=== PATIENT | female | born 1985 | race Caucasian/White ===

== ENCOUNTER 2018-05-29 00:58 | Inpatient (IN) ==
[2018-05-29] MEDS ORDERED: Aluminum/Magnesium/Simethacone Susp 30 ML UDC PO PRN (04:00)
[2018-05-29] MEDS: Acetaminophen 325 MG Tablet PO PRN ×3 (10:52→21:23)
[2018-05-29] MEDS ORDERED: Loperamide 2 MG Capsule PO PRN (12:24)
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
[2018-05-29] MEDS: buPROPion 150 MG XL 24 HR Tablet PO SCH (19:30)
[2018-05-30] MEDS: Acetaminophen 325 MG Tablet PO PRN ×4 (02:38→18:07)
[2018-05-30] MEDS: buPROPion 150 MG XL 24 HR Tablet PO SCH (08:42)
[2018-05-30 11:51] LABS: Anion Gap 7 meq/L (5-15); Blood Urea Nitrogen 10 mg/dL (7-18); Calcium 8.8 mg/dL (8.5-10.1); Carbon Dioxide 25.4 meq/L (21.0-32.0); Chloride 109 meq/L (98-107); Glomerular Filtration Rate Greater Than 89 mL/min (>89); Glucose,Random 156 mg/dL (74-106); Sodium 141 meq/L (136-145)
[2018-05-30 11:52] LABS: Cholesterol 162 mg/dL (120-200)
[2018-05-30 11:54] LABS: Chol/HDL Ratio 6.63 Ratio; HDL Cholesterol 24.4 mg/dL (40.0-60.0); LDL Cholesterol,Calculated 94 mg/dL (0-99); Triglycerides 219 mg/dL (42-150)
--- NOTE | 2018-05-30 12:59 | P.PNPSY ---
Subjective Chief Complaint: suicide attempt Remarks: Patient seen for follow-up, chart reviewed, patient discussed with nursing staff ; we reviewed the patient's mood, thoughts, and behaviors from overnight and this morning. Nurse reports that the patient had approximately 6 hours of sleep overnight and has had no behavioral outbursts. She continues to complain of opiate withdrawal symptoms and is using the as needed medications that are available to her. Patient was seen sitting quietly in the corner of the day room. She denies active thoughts of suicide or homicidal ideations. She reports sincere motivation for recovery beginning with detox. She reports good response to Wellbutrin in the past and is happy to have it restarted. She recognizes that the Klonopin will not be restarted due to the risks outweighing the benefits and an addict. Patient is willing to try Atarax as needed for anxiety. Patient complains of severe left leg pain and seeks further medical consultation. Mental Status Examination Appearance: Appropriate Consciousness: Alert Orientation: x4 Motor Activity: Normal gait Speech: Unremarkable Language: Adequate Fund of Knowledge: Adequate Attention and Concentration: Adequate Memory: Unremarkable Mood: Sad, Anxious Affect: Blunt Thought Process & Associations: Intact Thought Content: Appropriate Hallucination Type: None Delusion Type: None Suicidal Ideation: No (Passive suicidal thoughts) Suicidal Plan: No Suicidal Intention: No Homicidal Ideation: No Homicidal Plan: No Homicidal Intention: No Insight: Fair Judgment: Impulsive Assessment and Plan - Assessment (1) Depression, major, severe recurrence Code(s): F33.2 - Major depressive disorder, recurrent severe without psychotic features Status: Acute (2) Uncomplicated opioid dependence Code(s): F11.20 - Opioid dependence, uncomplicated Status: Acute - Plan Plan: 05/29/2018 Initial assessment and plan: Clonidine 0.1 mg for anxiety and opiate withdrawal, Zofran as needed for nausea, loperamide for diarrhea. Patient gives consent for Wellbutrin XL 150 mg daily. Medical consult placed for her left leg. Patient gives consent to sign voluntary 05/30/2018: Fair response to treatment plan; the patient is no longer having active thoughts of suicide and is expressing sincere motivation for recovery. Her opiate withdrawal symptoms are adequately controlled. The patient's complaints of left leg pain seemed to be in excess to what would be expected from opiate withdrawal therefore hospitalist consult will be sought. Continue current inpatient psychiatric treatment plan and observation. Hospitalist consulted for assessment of left leg pain and history of infections from IV drug use. Discharge planning: Patient would like help with referrals to recovery programs and will need psychiatric follow-up as well. Justification for Continued Inpatient Stay: Patient remains an elevated risk for self-harm and will require further inpatient stabilization and preparation of a safe discharge plan. Moving patient to a less restrictive environment at this time may result in decompensation.
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
[2018-05-30 16:06] LABS: Baso # (Auto) 0.1 th/mm3 (0.0-0.2); Baso % (Auto) 0.8 % (0.0-2.0); Eos # (Auto) 0.2 th/mm3 (0.0-0.4); Eos % (Auto) 1.8 % (0.0-4.0); Hematocrit 36.5 % (35.0-46.0); Hemoglobin 13.1 gm/dL (11.6-15.3); Lymph # (Auto) 3.4 th/mm3 (1.0-4.8); Lymph % (Auto) 30.5 % (9.0-44.0); Mean Corpuscular Hemoglobin 32.7 pg (27.0-34.0); Mean Corpuscular Volume 90.9 fL (80.0-100.0); Mean Platelet Volume 9.5 fL (7.0-11.0); Mono # (Auto) 0.6 th/mm3 (0.0-0.9); Mono % (Auto) 5.4 % (0.0-8.0); Neut # (Auto) 6.8 th/mm3 (1.8-7.7); Neut % (Auto) 61.5 % (16.0-70.0); Platelet Count 197 th/mm3 (150-450); Red Blood Count 4.01 mil/mm3 (4.00-5.30)
--- NOTE | 2018-05-30 16:10 | US ---
EXAM DATE: 05/30/2018 4:00 PM EST AGE/SEX: 33 years / Female INDICATIONS: Left leg pain. CLINICAL DATA: This is the patient's subsequent encounter. Patient reports that signs and symptoms h ave been present for 2 weeks and indicates a pain score of 3/10. MEDICAL/SURGICAL HISTORY: . Endometriosis. Cholecystectomy. Ankle surgery. . Dilation and cure ttage. [place] [facility] [place]/15/2018. . TECHNIQUE: Venous ultrasound of both lower extremities was performed from the inguinal ligament to t he proximal calf. Real-time, color Doppler and spectral tracing, compression and augmentation techni ques were used. FINDINGS: Normal compression of the deep venous system from the inguinal region to the proximal calf . No echogenic clot is seen. Normal response of the venous system to augmentation and respiration. CONCLUSION: The study is negative for lower extremity deep venous thrombosis. Electronically signed by: Curt Bedoya MD Board Certified Radiologist 05/30/2018 4:09 PM EST
[2018-05-30 16:51] LABS: Platelet Estimate Normal (Normal)
[2018-05-30 17:32] LABS: Hemoglobin A1c 6.1 % (4.3-6.0)
--- NOTE | 2018-05-30 20:29 | XR ---
EXAM DATE: 05/30/2018 8:22 PM EST AGE/SEX: 33 years / Female INDICATIONS: Left lower leg pain. CLINICAL DATA: This is the patient's initial encounter. Patient reports that signs and symptoms have been present for 1 day and indicates a pain score of 5/10. MEDICAL/SURGICAL HISTORY: None. None. COMPARISON: No prior exams available for comparison. FINDINGS: Bony structures are intact and in normal alignment. Osseous density is normal. Soft tissues are unre markable. No radiopaque foreign bodies seen. CONCLUSION: No acute fracture. Electronically signed by: Juan Pablo Armas MD Board Certified Radiologist 05/30/2018 8:28 PM EST
[2018-05-31] MEDS: Acetaminophen 325 MG Tablet PO PRN ×5 (00:32→21:20)
[2018-05-31] MEDS: buPROPion 150 MG XL 24 HR Tablet PO SCH (08:35)
--- NOTE | 2018-05-31 10:03 | P.TTN ---
- Patient Problems Problems: 1. Discharge planning 2. Medication compliance 3. Knowledge deficit 4. Lack of coping skills - Progress Toward Goals Provider Present: Other (Dr. Galdamezpatient is depressed and remains for further stabilization.) Psychiatric Counselors Present: Brett Oviedo Jr., [facility] (Counselor is working with the patient to have her placed at a sober living environment in the [facility]. Patient given a complete list of women's facilities in the [facility].) Group Spec/RT/OT/WALTERS Present: ROMEO Barbosa (Patient attends select groups.) - Documentation Teaching Recipient: Patient
--- NOTE | 2018-05-31 11:02 | P.PN ---
Subjective Interval history: Follow-up visit for left calf pain. Patient is seen and examined in her room with nurse present. She continues to complain of left calf pain and states that it feels like something tightens up behind her calf from time to time. Denies any fevers, chills, vomiting, SOB, cough or chest pain. She continues to have some nausea, but no vomiting today and not requiring Zofran for nausea. Physical Exam Vital signs: Vital Signs 05/30/18 15:22 05/30/18 22:00 05/31/18 06:10 Temperature 98.8 F 98 F 97.3 F L Pulse Rate 59 L 50 L 65 Respiratory Rate 18 16 Blood Pressure 123/76 116/68 105/66 Pulse Oximetry 95 97 95 Narrative: GENERAL: Well-developed obese female in no acute distress SKIN: Warm and dry. Bilateral lower extremity discoloration/hyperpigmentation with no open wounds. Right forehead abrasion, healing. HEAD: Atraumatic. Normocephalic. EYES: Pupils equal and round. No injection. Right conjunctival hemorrhage. ENT: No nasal bleeding or discharge. Mucous membranes pink and moist. NECK: Trachea midline. CARDIOVASCULAR: Regular rate and rhythm. RESPIRATORY: No accessory muscle use. Clear to auscultation. Breath sounds equal bilaterally. GASTROINTESTINAL: Abdomen soft, non-tender, nondistended. MUSCULOSKELETAL: Extremities without clubbing, cyanosis, or edema. No obvious deformities. Left calf larger than right with mild calf tenderness. NEUROLOGICAL: Awake, alert, oriented x3. No obvious cranial nerve deficits. Motor grossly within normal limits. Five out of 5 muscle strength in the arms and legs. Normal speech. Results - Labs CBC & Chem 7: 05/30/18 11:07 05/31/18 11:58 Laboratory Results - last 24 hr 05/30/18 05/30/18 05/30/18 11:07 11:07 11:07 WBC 11.0 RBC 4.01 Hgb 13.1 Hct 36.5 MCV 90.9 MCH 32.7 MCHC 36.0 RDW 13.0 Plt Count 197 MPV 9.5 Prelim Diff (Auto) Slide review pending Neut % (Auto) 61.5 Lymph % (Auto) 30.5 Kimble % (Auto) 5.4 Eos % (Auto) 1.8 Baso % (Auto) 0.8 Neut # (Auto) 6.8 Lymph # (Auto) 3.4 Kimble # (Auto) 0.6 Eos # (Auto) 0.2 Baso # (Auto) 0.1 WBC Differential . Diff Scan Auto diff confirmed Differential Comment . Platelet Estimate Normal Platelet Morphology Enlarged H Sodium 141 Potassium 4.0 Chloride 109 H Carbon Dioxide 25.4 Anion Gap 7 BUN 10 Creatinine 0.70 Estimated GFR Greater than 89 Random Glucose 156 H Hemoglobin A1c 6.1 H Calcium 8.8 Triglycerides 219 H Cholesterol 162 LDL Cholesterol, Calc 94 HDL Cholesterol 24.4 L Cholesterol/HDL Ratio 6.63 - Imaging Impressions Tibia/Fibula X-Ray 05/30/18 00:00 CONCLUSION: No acute fracture. Venous Doppler Study 05/30/18 00:00 CONCLUSION: The study is negative for lower extremity deep venous thrombosis. Assessment and Plan - Plan 33-year-old female with past medical history significant for asthma, endometriosis, tobacco and opiate abuse who presents to [facility] as a transfer from [facility] after heroine OD on 05/28. According to records patient received chest compressions and Narcan via IO access. Labs reviewed, WBC 15.4 , UA with no culture indicated, chest x-ray negative. [facility] consulted due to left foot numbness with recent antibiotic treatment. Heroine OD Suicide attempt Depression - Treatment plan plan per psychiatry - Patient verbalizes she would like to enter sobriety program after discharge Left calf pain Left heel paresthesia -Repeat US of left LE negative for DVT - Tib/fib x-ray negative, no fracture and soft tissue with no abnormalities or foreign bodies seen. - CBC with no leukocytosis, afebrile - Suspect could be muscle spasms, BMP and mag level stable - Trial of Flexeril and PRN Tylenol Abuse - to provide patient with list of resources DVT prophylaxis-ambulation Discussed Condition With: Patient and RN
[2018-05-31 13:07] LABS: Anion Gap 6 meq/L (5-15); Blood Urea Nitrogen 11 mg/dL (7-18); Calcium 9.2 mg/dL (8.5-10.1); Carbon Dioxide 26.4 meq/L (21.0-32.0); Chloride 108 meq/L (98-107); Glomerular Filtration Rate Greater Than 89 mL/min (>89); Glucose,Random 162 mg/dL (74-106); Sodium 140 meq/L (136-145)
--- NOTE | 2018-05-31 15:26 | P.PNPSY ---
Subjective Chief Complaint: suicide attempt Remarks: Patient seen for follow-up, chart reviewed, patient discussed with nursing staff ; we reviewed the patient's mood, thoughts, and behaviors from overnight and this morning. Nurse reports that the patient had been complaining of increased pain and anxiety this morning and asked about her right to be released. She responded to supportive treatment and the hospitalist behavioral consultant started her on Flexeril for pain and the patient was given the Atarax at the increased dose of 100 mg as needed for anxiety and there was a positive response and patient decided to continue the inpatient stay. The patient was seen at bedside and we discussed the recent grief and loss of her brother to an overdose on the same day that she was admitted for overdose. Patient expressed sincere motivation for change in recovery from her addiction. She expressed helplessness and hopelessness however and that she did not have the necessary money to get into a sober living place or eventually to get into Suboxone treatment which she is seeing work for others. The patient is willing to meet with social workers to see what her options are with plans to discharge this week. She reports a decrease in the intensity of her opiate withdrawal symptoms to include no more diarrhea. She continues to complain of left lower extremity pain but denies that it has worsened. She is denying current suicidal ideations. Mental Status Examination Appearance: Appropriate Consciousness: Alert Orientation: x4 Motor Activity: Normal gait Speech: Unremarkable Language: Adequate Fund of Knowledge: Adequate Attention and Concentration: Adequate Memory: Unremarkable Mood: Sad, Anxious Affect: Blunt Thought Process & Associations: Intact Thought Content: Appropriate Hallucination Type: None Delusion Type: None Suicidal Ideation: No (Passive suicidal thoughts) Suicidal Plan: No Suicidal Intention: No Homicidal Ideation: No Homicidal Plan: No Homicidal Intention: No Insight: Fair Judgment: Impulsive Assessment and Plan - Assessment (1) Depression, major, severe recurrence Code(s): F33.2 - Major depressive disorder, recurrent severe without psychotic features Status: Acute (2) Uncomplicated opioid dependence Code(s): F11.20 - Opioid dependence, uncomplicated Status: Acute - Plan Plan: 05/29/2018 Initial assessment and plan: Clonidine 0.1 mg for anxiety and opiate withdrawal, Zofran as needed for nausea, loperamide for diarrhea. Patient gives consent for Wellbutrin XL 150 mg daily. Medical consult placed for her left leg. Patient gives consent to sign voluntary 05/30/2018: Fair response to treatment plan; the patient is no longer having active thoughts of suicide and is expressing sincere motivation for recovery. Her opiate withdrawal symptoms are adequately controlled. The patient's complaints of left leg pain seemed to be in excess to what would be expected from opiate withdrawal therefore hospitalist consult will be sought. Continue current inpatient psychiatric treatment plan and observation. Hospitalist consulted for assessment of left leg pain and history of infections from IV drug use. Discharge planning: Patient would like help with referrals to recovery programs and will need psychiatric follow-up as well. 05/31/2018: Fair response to treatment plan; the patient's opiate withdrawal symptoms are well controlled and declining but the recent news of her brother's to an overdose has caused worsening anxiety and helplessness. The patient is expressing sincere motivation for recovery therefore the treatment team will work to find and investigate all possible opportunities for her to get into a sober living environment after discharge. Continue current inpatient psychiatric treatment plan and observation. Anticipate increase the Wellbutrin to 300 mg a day. Once detox is complete. Hospitalist following assessment of left leg pain and history of infections from IV drug use. Discharge planning: Patient would like help with referrals to recovery programs and will need psychiatric follow-up as well. Justification for Continued Inpatient Stay: Patient remains an elevated risk for self-harm by relapse and possible overdose of substances and will require further inpatient stabilization and preparation of a safe discharge plan. Moving patient to a less restrictive environment at this time may result in decompensation.
[2018-05-31 18:03] VITALS: PULSE 53
[2018-06-01 06:03] VITALS: BP 123/72; RESP 16; TEMP 97.6; O2SAT 96
[2018-06-01] MEDS: Acetaminophen 325 MG Tablet PO PRN (06:13)
--- NOTE | 2018-06-01 08:25 | P.PN ---
Subjective Interval history: Follow-up visit for right leg pain. Reports that Flexeril did help take the edge off the pain. We discussed increasing dose which she is agreeable to. Denies fevers, vomiting, cough or SOB. Reports no other acute concerns or complaints at this moment. Physical Exam Vital signs: Vital Signs 05/31/18 18:02 06/01/18 05:59 Temperature 98.7 F 97.6 F Pulse Rate 53 L 53 L Respiratory Rate 19 16 Blood Pressure 126/73 123/72 Pulse Oximetry 98 96 Intake & Output 05/31/18 06/01/18 06/01/18 18:59 06:59 18:59 Intake Total 960 / 960 Balance 960 / 960 Intake: Oral 960 / 960 Other: # Voids 3 Narrative: GENERAL: Well-developed obese female in no acute distress SKIN: Warm and dry. Bilateral lower extremity discoloration/hyperpigmentation with no open wounds. Right forehead abrasion, healing. HEAD: Atraumatic. Normocephalic. EYES: Pupils equal and round. No injection. Right conjunctival hemorrhage. ENT: No nasal bleeding or discharge. Mucous membranes pink and moist. NECK: Trachea midline. CARDIOVASCULAR: Regular rate and rhythm. RESPIRATORY: No accessory muscle use. Clear to auscultation. Breath sounds equal bilaterally. GASTROINTESTINAL: Abdomen soft, non-tender, nondistended. MUSCULOSKELETAL: Extremities without clubbing, cyanosis, or edema. No obvious deformities. Left calf larger than right with mild calf tenderness. NEUROLOGICAL: Awake, alert, oriented x3. No obvious cranial nerve deficits. Motor grossly within normal limits. Normal speech. Results - Labs CBC & Chem 7: 05/30/18 11:07 05/31/18 11:58 Laboratory Results - last 24 hr 05/31/18 11:58 Sodium 140 Potassium 4.0 Chloride 108 H Carbon Dioxide 26.4 Anion Gap 6 BUN 11 Creatinine 0.71 Estimated GFR Greater than 89 Random Glucose 162 H Calcium 9.2 Magnesium 2.0 Assessment and Plan - Plan 33-year-old female with past medical history significant for asthma, endometriosis, tobacco and opiate abuse who presents to [facility] as a transfer from [facility] after heroine OD on 05/28. According to records patient received chest compressions and Narcan via IO access. Labs reviewed, WBC 15.4 , UA with no culture indicated, chest x-ray negative. [facility] consulted due to left foot numbness with recent antibiotic treatment. Heroine OD Suicide attempt Depression - Treatment plan plan per psychiatry - Patient verbalizes she would like to enter sobriety program after discharge Left calf pain Left heel paresthesia -Repeat US of left LE negative for DVT - Tib/fib x-ray negative, no fracture and soft tissue with no abnormalities or foreign bodies seen. - CBC with no leukocytosis, afebrile - Suspect could be muscle spasms, BMP and mag level stable - Relief with Flexeril, increase to 15mg PRN Q8hrs, continue Tylenol as well PRN Abuse -CM to provide patient with list of resources DVT prophylaxis-ambulation Discussed Condition With: Patient and RN
[2018-06-01] MEDS: buPROPion 150 MG XL 24 HR Tablet PO SCH (09:03)
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
== END 2018-06-01 16:30 | disposition home or self-care (01) | DRG 885 ==
LOC: H270 02:18 → H4EA 05-30 21:32
PROVIDERS: ADMIT Psychiatry & Neurology Psychiatry; ATTEND Psychiatry & Neurology Psychiatry
CPT/HCPCS: 73590; 80048; 80061; 83036; 83735; 85025; 93971; Q0163